=== PATIENT | male | born 1945 ===

== ENCOUNTER 2017-02-04 22:06 | Emergency (ER) | payer OTHER ==
[2017-02-04 22:10] VITALS: O2SAT 98
--- NOTE | 2017-02-04 23:09 | ED PDOC ---
HPI: Back Time Seen by Provider: 02/04/17 22:24 Chief Complaint (Nursing): Lower Extremity Problem/Injury Chief Complaint (Provider): Radiating back pain History Per: Patient History/Exam Limitations: no limitations Onset/Duration Of Symptoms: Days (3) Current Symptoms Are (Timing): Constant Additional Complaint(s): Patient is a 71 y/o male with a past medical history of hypertension, peripheral vascular disease, and coronary artery disease presenting to the emergency department for constant lower back pain that radiates to his right leg x 3 days that is worse with movement. Denies injuries, fever, urinary problems, abdominal pain, numbness, tingling, weakness, chest pain, headache, or other complaints. PCP: none provided. Past Medical History Reviewed: Historical Data, Nursing Documentation, Vital Signs Vital Signs: Last Vital Signs Temp 99.4 F 02/04/17 22:07 Pulse 92 H 02/04/17 22:07 Resp 25 H 02/04/17 22:07 BP 215/106 H 02/04/17 22:07 Pulse Ox 98 02/04/17 22:07 - Medical History PMH: CAD, HTN Denies: Chronic Pain (back) Other PMH: peripheral vascular disease, no cancer - Surgical History Surgical History: No Surg Hx - Family History Family History: States: Unknown Family Hx - Social History Current smoker - smoking cessation education provided: No Ex-Smoker (has not smoked in the last 12 months): No Alcohol: None Drugs: Denies - Home Medications Home Medications: Ambulatory Orders Medication Instructions Recorded Methylprednisolone [Medrol Dose 4 mg PO ASDIR #21 mg 02/05/17 Pack (21 tabs)] oxyCODONE/Acetaminophen [Percocet 1 ea PO Q6 PRN #15 tab 02/05/17 5/325 mg Tab] - Allergies Allergies/Adverse Reactions: Allergies Allergy/AdvReac Type Severity Reaction Status Date / Time No Known Allergies Allergy Verified 02/04/17 22:07 Review of Systems ROS Statement: Except As Marked, All Systems Reviewed And Found Negative Constitutional: Negative for: Fever, Weakness, Other (trauma) Gastrointestinal: Negative for: Abdominal Pain Genitourinary Male: Negative for: Dysuria, Frequency, Hematuria Musculoskeletal: Positive for: Back Pain (right lower, radiating), Leg Pain ( right) Neurological: Negative for: Weakness, Numbness (or tingling) Physical Exam - Reviewed Nursing Documentation Reviewed: Yes Vital Signs Reviewed: Yes - Physical Exam Appears: Positive for: Uncomfortable Head Exam: Positive for: ATRAUMATIC, NORMAL INSPECTION, NORMOCEPHALIC Skin: Positive for: Normal Color, Warm, Dry Eye Exam: Positive for: Normal appearance Neck: Positive for: Normal Cardiovascular/Chest: Positive for: Regular Rate, Rhythm. Negative for: Murmur Respiratory: Positive for: Normal Breath Sounds. Negative for: Accessory Muscle Use, Respiratory Distress Gastrointestinal/Abdominal: Positive for: Normal Exam, Soft. Negative for: Tenderness Back: Positive for: Other (right lower back paraspinal tenderness) Extremity: Positive for: Normal ROM, Swelling (chronic bilateral lower leg) Neurologic/Psych: Positive for: Alert, Oriented (x3) - Laboratory Results Result Diagrams: 02/04/17 23:16 02/04/17 23:16 - ECG O2 Sat by Pulse Oximetry: 98 (RA) Pulse Ox Interpretation: Normal - Progress Re-evaluation Time: 00:05 Condition: Re-examined, Improved Medical Decision Making Medical Decision Making: Time: 22:54 Initial impression: Back pain Differential diagnoses include but not limited to sciatica and lumbar retinopathy. Asymptomatic hypertension Initial plan: CT scan lumbar spine Labs ED urine dipstick Flexeril 10 mg PO Morphine 4 mg IVP Reevaluation 23:[address] scan reviewed. Findings noted as follows: Vertebrae: 5 [id number] lumbar-type vertebral bodies. Normal vertebral body alignment. No listhesis. No evident spondylolysis. The vertebral body heights are preserved. Moderate to severe degenerative endplate changes and associated Schmorl's nodes at L2-3 and L3-4. No acute fracture. Discs/spinal canal/neural foramina: Diffuse intervertebral disc height loss throughout the lumbar spine most significant from L1-2 through L3-4. Mild spinal canal narrowing from L1-2 through L3-4. Probable associated ligamentum flavum hypertrophy at L3-4. Mild neural foraminal narrowing at L3- 4 and L4-5. Soft tissues: Normal. Vasculature: The aorta demonstrates moderate atherosclerotic calcification. Lungs: Subpleural reticular opacities within the dependent aspect of the lower lobes may represent subsegmental atelectasis or scarring. Other findings: Mild diffuse facet arthropathy. The imaged abdominopelvic structures are otherwise unremarkable. IMPRESSION: 1. No acute osseous abnormality of the lumbar spine. 2. Mild to moderate lumbar spondylosis, most significant at L2-3 and L3-4 as detailed above. 3. Mild spinal canal stenosis from L1-3 L3-4. 4. Mild neuroforaminal narrowing at L3-4 and L4-5 Scribe Attestation: Documented by Gilda Lay, acting as a scribe for Samuel Stephen MD. Provider Scribe Attestation: All medical record entries made by the Scribe were at my direction and personally dictated by me. I have reviewed the chart and agree that the record accurately reflects my personal performance of the history, physical exam, medical decision making, and the department course for this patient. I have also personally directed, reviewed, and agree with the discharge instructions and disposition. Disposition - Clinical Impression Clinical Impression: Back pain, Radicular pain, Hypertension - Patient ED Disposition Is Patient to be Admitted: No Doctor Will See Patient In The: Office Counseled Patient/Family Regarding: Studies Performed, Diagnosis, Need For Followup - Disposition Referrals: [facility] [Outside] Disposition: Routine/Home Disposition Time: 00:06 Condition: GOOD Additional Instructions: Take your medications as instructed. Follow up with your PCP in 2-3 days. Prescriptions: Methylprednisolone [Medrol Dose Pack (21 tabs)] 4 mg PO ASDIR #21 mg oxyCODONE/Acetaminophen [Percocet 5/325 mg Tab] 1 ea PO Q6 PRN #15 tab PRN Reason: Pain, Severe (8-10) Instructions: Lumbar Radiculopathy (ED) Print Language: SETSWANA
[2017-02-04 23:20] LABS: BASO % 0.4 % (0.0-2.0); EOS # 0.1 K/uL (0.0-0.7); HEMATOCRIT 39.9 % (35.0-51.0); LYMPH % 18.6 % (20.0-40.0); MEAN CORPUSCULAR HEMOGLOBIN 27.9 pg (27.0-31.0); MEAN CORPUSCULAR HGB CONC 32.4 g/dL (33.0-37.0); MEAN PLATELET VOLUME 8.6 fl (7.2-11.7); MONO # 1.8 K/uL (0.0-0.8); RED CELL DISTRIBUTION WIDTH 17.3 % (11.5-14.5); WHITE BLOOD COUNT 10.9 K/uL (4.8-10.8)
[2017-02-04 23:28] LABS: BLOOD UREA NITROGEN 18 mg/dl (9-20); CALCIUM 9.3 mg/dL (8.4-10.2); CARBON DIOXIDE 29 mmol/L (22-30); CHLORIDE 99 mmol/L (98-107); GFR AFRICAN-AMERICAN > 60; GLUCOSE,RANDOM 135 mg/dL (75-110); POTASSIUM 3.9 MMOL/L (3.6-5.0); SODIUM 138 mmol/l (132-148)
[2017-02-05 00:42] VITALS: BP 170/98; PULSE 89; RESP 18; TEMP 98.9
--- NOTE | 2017-02-05 09:33 | CT ---
PROCEDURE: CT lumbar spine dated 02/04/2017 HISTORY: Right back pain. Leg pain. COMPARISON: CT TECHNIQUE: Axial computed tomography images were obtained of the lumbar spine without the use of intravenous contrast. Coronal and sagittal reformatted images were created and reviewed. Radiation dose: Total exam DLP = 1221.02 mGy-cm. This CT exam was performed using one or more of the following dose reduction techniques: Automated exposure control, adjustment of the mA and/or kV according to patient size, and/or use of iterative reconstruction technique. FINDINGS: VERTEBRAE: No acute compression fractures nor retropulsed fragments. . There are however chronic appearing degenerative endplate changes with subchondral cyst/ Schmorl's nodes formation. Similar but less severe changes seen at the L2-L3 endplates as well. Minor changes seen at the L1-L2 endplate. Slight straightening of the normal lumbar lordosis however vertebral bodies otherwise exhibit normal alignment. Facets normally aligned. DISCS/SPINAL CANAL/NEURAL FORAMINA: L1-2: Moderate disc space narrowing with small amount of vacuum disc phenomena and tiny chronic Schmorl's node formation. Small broad-based disc bulge ridge complex extends slightly into the proximal inferior margins of both exit foramina. Changes result in slight flattening of the ventral surface of thecal sac however the overall central canal appears quite. Facets slightly overgrown. Exit foramina are adequate. L2-3: There is moderate disc space narrowing with the small amount of vacuum disc phenomena and as mentioned above, degenerative endplate changes, subchondral cystic/ Schmorl's node formation. . Moderate broad-based bulge of the posterior annulus is also seen extending into the proximal inferior margins of both exit foramina. There is mild flattening of the ventral surface of the thecal sac on more so along the anterolateral borders than centrally however the overall central canal appears adequate. Facets a prominent. Proximal exit foramina appear adequate. . L3-4: At the L3-L4 level, there is also disc space narrowing with moderate broad-based bulge of the posterior annulus that also flattens the ventral surface of thecal sac and extends slightly into the proximal inferior margins of both exit foramina. Central canal appears adequate. Proximal exit foramina appear narrowed L4-5: At the L4-L5 level, there is mild posterior disc space narrowing. Small broad-based bulge of the posterior annulus proximal exit foramina appear narrowed is present. Central canal appears adequate. Proximal exit foramina appear narrowed. L5-S1: At the L5-S1 level, there is mild posterior disc space narrowing with minor broad-based bulge of the annulus. Central canal quite capacious. Facets are slightly overgrown. Exit foramina are adequate. . PARASPINAL SOFT TISSUES: Unremarkable. OTHER FINDINGS: Slightly nodular appearing left adrenal gland. IMPRESSION: No acute fractures. Multilevel degenerative spondylosis without significant central canal stenosis.
== END 2017-02-05 00:09 | disposition home or self-care (01) ==
LOC: H.ER 22:06
DX: M54.9 Dorsalgia, unspecified (principal); I10 Essential (primary) hypertension; M48.06 Spinal stenosis, lumbar region; I25.10 Atherosclerotic heart disease of native coronary artery without angina pectoris; I73.9 Peripheral vascular disease, unspecified; M51.36 Other intervertebral disc degeneration, lumbar region
CPT/HCPCS: 72131; 80048; 85025; 85651; 96374; 99283; J2270

== ENCOUNTER 2017-02-11 18:48 | Emergency (ER) | payer SELFPAY ==
[2017-02-11 18:54] VITALS: TEMP 96.8
[2017-02-11 19:18] VITALS: RESP 17; O2SAT 96
--- NOTE | 2017-02-11 19:46 | ED PDOC ---
HPI: Hypertension/Hypotension Time Seen by Provider: 02/11/17 19:12 Chief Complaint (Nursing): High Blood Pressure Chief Complaint (Provider): High Blood Pressure History Per: Patient History/Exam Limitations: no limitations Onset/Duration Of Symptoms: Days Current Symptoms Are (Timing): Still Present Additional Complaint(s): Pedro Gant is a 71 year old male with a history of hypertension that presents to the ED with a chief complaint of elevated blood pressure. Patient states that he was at the clinic earlier today for a routine check-up when they noticed his systolic blood pressure was between 220-240. Patient states that he was given one dose of Norvasc at the clinic and referred to the ED for further workup. He reports that his elevated blood pressure had been happening for a while, as he states he was seen here last week for his back pain and was noted to have high blood pressure then as well. Past Medical History Reviewed: Historical Data, Nursing Documentation, Vital Signs Vital Signs: Last Vital Signs Temp 96.8 F L 02/11/17 18:52 Pulse 78 02/11/17 19:16 Resp 17 02/11/17 19:16 BP 156/117 H 02/11/17 19:16 Pulse Ox 96 02/11/17 19:16 - Medical History PMH: CAD, CHF, HTN, Peripheral Edema Denies: Chronic Pain (back) - Surgical History Surgical History: Appendectomy - Family History Family History: States: Unknown Family Hx - Home Medications Home Medications: Ambulatory Orders Medication Instructions Recorded Methylprednisolone [Medrol Dose 4 mg PO ASDIR #21 mg 02/05/17 Pack (21 tabs)] oxyCODONE/Acetaminophen [Percocet 1 ea PO Q6 PRN #15 tab 02/05/17 5/325 mg Tab] - Allergies Allergies/Adverse Reactions: Allergies Allergy/AdvReac Type Severity Reaction Status Date / Time No Known Allergies Allergy Verified 02/04/17 22:07 Review of Systems Constitutional: Positive for: Other (high blood presure) Neurological: Positive for: Headache (mild) Physical Exam - Reviewed Nursing Documentation Reviewed: Yes Vital Signs Reviewed: Yes - Physical Exam Appears: Positive for: Non-toxic, No Acute Distress Head Exam: Positive for: ATRAUMATIC, NORMOCEPHALIC Skin: Positive for: Normal Color, Warm Eye Exam: Positive for: Normal appearance, EOMI, PERRL Cardiovascular/Chest: Positive for: Regular Rate, Rhythm. Negative for: Murmur Respiratory: Positive for: Normal Breath Sounds. Negative for: Wheezing Gastrointestinal/Abdominal: Positive for: Normal Exam, Soft Neurologic/Psych: Positive for: Alert, Oriented. Negative for: Motor/Sensory Deficits - Laboratory Results Result Diagrams: 02/11/17 19:37 02/11/17 19:53 - ECG O2 Sat by Pulse Oximetry: 96 (RA) Pulse Ox Interpretation: Normal - Progress Re-evaluation Time: 21:00 Condition: Re-examined, Improved Medical Decision Making Medical Decision Making: Impression: Hypertension ddx include Hypertensive urgency vs. Headache associated with hypertensive urgency Plan: * CT Head w/o contrast * CMP * CBC * Reevaluation Patient's systolic BP in ED is 150. 20:00 CT Head w/o contrast FINDINGS: Brain: There is mild diffuse heterogeneity of the white matter attenuation, consistent with chronic white matter ischemic changes. The cortical/white matter interfaces are preserved throughout the brain. There is no intracranial mass or mass effect. No hemorrhage. Midline shift: No midline shift. Ventricles: The ventricular system demonstrates mild diffuse compensatory enlargement. Bones/joints: The calvarium and skull base are intact. No acute fracture. Soft tissues: Normal. Vasculature: Atherosclerotic vascular calcification of the V4 segment vertebral and parasellar carotid arteries. Sinuses: Normal appearance of the imaged paranasal sinuses. Mastoid air cells: Normal as visualized. No mastoid effusion. IMPRESSION: 1. No acute intracranial abnormality. 2. Mild cortical volume loss. 3. Sequela of chronic microvascular disease. Scribe Attestation: Documented by Shanelle Coleman, acting as a scribe for Samuel Stephen MD. Provider Scribe Attestation: All medical record entries made by the Scribe were at my direction and personally dictated by me. I have reviewed the chart and agree that the record accurately reflects my personal performance of the history, physical exam, medical decision making, and the department course for this patient. I have also personally directed, reviewed, and agree with the discharge instructions and disposition. Disposition - Clinical Impression Clinical Impression: Hypertension - Patient ED Disposition Is Patient to be Admitted: No Doctor Will See Patient In The: Office Counseled Patient/Family Regarding: Studies Performed, Diagnosis, Need For Followup - Disposition Referrals: [facility] [Outside] Disposition: Routine/Home Disposition Time: 21:05 Condition: GOOD Additional Instructions: Start taking your new medications. Return for worsening. Follow up with your PCP in 2-3 days. Instructions: Hypertension (ED)
[2017-02-11 19:58] LABS: BASO # 0.1 K/uL (0.0-0.2); BASO % 0.4 % (0.0-2.0); EOS # 0.1 K/uL (0.0-0.7); EOS % 1.1 % (0.0-4.0); HEMATOCRIT 43.9 % (35.0-51.0); LYMPH # 2.9 K/uL (1.0-4.3); LYMPH % 21.5 % (20.0-40.0); MEAN CELL VOLUME 86.9 fl (80.0-94.0); MEAN CORPUSCULAR HEMOGLOBIN 27.9 pg (27.0-31.0); MEAN CORPUSCULAR HGB CONC 32.1 g/dL (33.0-37.0); MEAN PLATELET VOLUME 8.8 fl (7.2-11.7); MONO # 1.4 K/uL (0.0-0.8); MONO % 10.8 % (0.0-10.0); NEUT # 8.8 K/uL (1.8-7.0); NEUT % 66.2 % (50.0-75.0); NRBC % 0.1 % (0.0-0.0); RED CELL DISTRIBUTION WIDTH 16.7 % (11.5-14.5); WHITE BLOOD COUNT 13.3 K/uL (4.8-10.8)
[2017-02-11 20:13] LABS: BLOOD UREA NITROGEN 23 mg/dl (9-20); CALCIUM 9.4 mg/dL (8.4-10.2); CARBON DIOXIDE 29 mmol/L (22-30); CHLORIDE 97 mmol/L (98-107); GFR AFRICAN-AMERICAN > 60; GLUCOSE,RANDOM 110 mg/dL (75-110); POTASSIUM 3.8 MMOL/L (3.6-5.0); SODIUM 141 mmol/l (132-148)
[2017-02-11 21:06] VITALS: BP 191/97
[2017-02-11 21:20] VITALS: PULSE 75
--- NOTE | 2017-02-12 08:40 | CT ---
PROCEDURE: CT HEAD WITHOUT CONTRAST. HISTORY: headache COMPARISON: None available. TECHNIQUE: Axial computed tomography images were obtained through the head/brain without intravenous contrast. Radiation dose: Total exam DLP = 816.09 mGy-cm. This CT exam was performed using one or more of the following dose reduction techniques: Automated exposure control, adjustment of the mA and/or kV according to patient size, and/or use of iterative reconstruction technique. FINDINGS: HEMORRHAGE: No intracranial hemorrhage. BRAIN: No mass effect or edema. Mild volume loss is noted. Questionable mild white matter chronic microvascular ischemic disease. VENTRICLES: Unremarkable. No hydrocephalus. CALVARIUM: Unremarkable. PARANASAL SINUSES: Mild mucosal thickening and small air-fluid level seen at the left sphenoid sinus. MASTOID AIR CELLS: Unremarkable as visualized. No inflammatory changes. OTHER FINDINGS: None. IMPRESSION: No evidence of acute intracranial hemorrhage intracranial collection mass effect or midline shift. Mild volume loss. Mild mucosal thickening and small air-fluid level at the left maxillary sinus. Preliminary report was submitted by [facility].
== END 2017-02-11 21:22 | disposition home or self-care (01) ==
LOC: H.ER 18:48
DX: I10 Essential (primary) hypertension (principal)

== ENCOUNTER 2018-03-14 11:06 | Emergency (ER) | payer OTHER ==
[2018-03-14 11:20] VITALS: TEMP 97.1; O2SAT 97
[2018-03-14 11:21] VITALS: BMI 28.1
--- NOTE | 2018-03-14 12:27 | ED PDOC ---
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 Patient reports he woke up with the pain and denies fall, injury to the foot or history of gout. He states he took Ibuprofen 800mg this morning at 05:00. Denies calf pain, knee pain, or fever. Patient indicates he saw his doctor for knee and back pain in the past and was told he has arthritis at the time. Patient notes that he was also told to avoid seafood in his diet but is unsure why. PMD: Jaime Joy Past Medical History Reviewed: Historical Data, Nursing Documentation, Vital Signs Vital Signs: Last Vital Signs Temp 97.1 F L 03/14/18 11:19 Pulse 87 03/14/18 11:19 Resp 20 03/14/18 11:19 BP 181/76 H 03/14/18 11:19 Pulse Ox 97 03/14/18 11:19 - Medical History PMH: CAD, CHF, HTN, Peripheral Edema, Chronic Pain (back) - Surgical History Surgical History: Appendectomy - Family History Family History: States: Unknown Family Hx - Home Medications Home Medications: Ambulatory Orders Medication Instructions Recorded Methylprednisolone [Medrol Dose 4 mg PO ASDIR #21 mg 02/05/17 Pack (21 tabs)] oxyCODONE/Acetaminophen [Percocet 1 ea PO Q6 PRN #15 tab 02/05/17 5/325 mg Tab] RX: Colchicine 0.6 mg PO DAILY #7 tablet 03/14/18 RX: Indomethacin 50 mg PO TID PRN #21 capsule 03/14/18 RX: Prednisone [Deltasone] 40 mg PO DAILY #10 tablet 03/14/18 - Allergies Allergies/Adverse Reactions: Allergies Allergy/AdvReac Type Severity Reaction Status Date / Time No Known Allergies Allergy Verified 03/14/18 11:22 Review of Systems ROS Statement: Except As Marked, All Systems Reviewed And Found Negative Constitutional: Negative for: Fever Musculoskeletal: Positive for: Foot Pain (right). Negative for: Other (calf pain or knee pain) Physical Exam - Reviewed Nursing Documentation Reviewed: Yes Vital Signs Reviewed: Yes - Physical Exam Comments: GENERAL APPEARANCE: Patient is awake, alert, oriented x 3, in no acute distress. Resting comfortably. SKIN: Warm, dry; (-) cyanosis. NECK: Supple, FROM CHEST AND RESPIRATORY: (-) wheezing; (-) rales, (-) rhonchi; breath sounds equal bilaterally. Respirations even and nonlabored. HEART AND CARDIOVASCULAR: (-) irregularity LOWER EXTREMITY: Diffuse tenderness, erythema, and warmth to the dorsum right midfoot and forefoot. (-) edema (-) skin break. (-) palpable deformity. Decreased ROM at ankle secondary to foot pain. Capillary refill intact. (-) right ankle or calf tenderness. Remainder of lower extremity nontender with FROM. Ambulating with a limp. CARDIOVASCULAR: (+) distal pulse. NEUROLOGIC: (+) distal sensation. - Laboratory Results Result Diagrams: 03/14/18 13:32 03/14/18 13:32 - ECG O2 Sat by Pulse Oximetry: 97 (RA) Pulse Ox Interpretation: Normal Medical Decision Making Medical Decision Making: Initial Impression: Acute foot pain, likely gout Initial Plan: --BMP --Uric acid --CBC --Tylenol 650mg PO --Ultram 50mg PO --Right foot X-ray --Consult podiatry Despite elevated blood pressure reading upon arriving to the ED, patient states he took his medication today. Denies any complaints regarding elevated blood pressure reading. 1300 Case discussed with podiatry resident, Jason Crenshaw, who is agreeable to evaluation in ED. 1400 Foot XR reviewed: (-) fracture Labs reviewed. H&H stable. No leukocytosis. No elevation of uric acid. Toradol 30mg IVP ordered for additional pain control. Pending podiatry evaluation. 1430 Podiatry at bedside. [id number] Per podiatry evaluation, patient with diagnosis of gout. Solu-medrol IVP and Colchicine PO ordered. 1550 Repeat BP: 151/83 On re-evaluation, patient reports improvement of symptoms. On exam, patient remains AAOx3, in no acute distress. Lungs clear to auscultation, cardiac RRR, repeat neuro exam shows no focal findings. Patient offered crutches however declined. Vitals stable. Lab/Diagnostic results d/w the patient in great detail. Diagnosis of acute foot pain, gout d/w the patient. Based on history, exam and diagnostic results, plan will be for outpatient foll ow up with PMD/clinic/podiatry. Patient instructed to follow-up with pmd / referral provided / the clinic in 1- 2 days without fail. Advised to take medication as prescribed. Return to the emergency room at any time for any new or worsening symptoms. Patient states he fully agrees with and understands discharge instructions. States that he agrees with the plan and disposition. Verbalized and repeated discharge instructions and plan. I have given the patient opportunity to ask any additional questions. Scribe Attestation: Documented by Deon Bishop acting as a scribe for Ada FERRIS Provider Scribe Attestation: All medical record entries made by the Scribe were at my direction and personally dictated by me. I have reviewed the chart and agree that the record accurately reflects my personal performance of the history, physical exam, medical decision making, and the department course for this patient. I have also personally directed, reviewed, and agree with the discharge instructions and disposition. Disposition - Clinical Impression Clinical Impression: Acute foot pain, Gout - Patient ED Disposition Is Patient to be Admitted: No Counseled Patient/Family Regarding: Studies Performed, Diagnosis, Need For Followup, Rx Given - Disposition Referrals: Podiatry Clinic [Outside] Jaime Weaver MD [Staff Provider] - Disposition: Routine/Home Disposition Time: 15:50 Condition: STABLE Additional Instructions: La atencin mdica de emergencia que recibi hoy se dirigi a terry sntomas agudos. Si le recetaron algn medicamento, llnelo y tmelo segn las indicaciones. Los sntomas pueden tardar varios maxwell en resolverse. Regrese al Departamento de Emergencias si terry sntomas empeoran, no mejoran o si tiene otros problemas. Comunquese con blackwell mdico dentro de 2 maxwell para birgit nueva evaluacin y adrian un seguimiento o llame a xander de los mdicos / clnicas a los que jones sido referido y que figuran en el formulario de Informacin de visita al paciente que se incluye en blackwell paquete de luiza. Lleve con usted a blackwell consulta de seguimiento toda la documentacin que recibi del luiza junto con los medicamentos que est tomando. Nuestro tratamiento no puede reemplazar la atencin mdica continua por parte de un proveedor de atencin primaria (PCP) fuera del departamento de emergencias. Prescriptions: RX: Colchicine 0.6 mg PO DAILY #7 tablet RX: Indomethacin 50 mg PO TID PRN #21 capsule PRN Reason: Pain, Moderate (4-7) RX: Prednisone [Deltasone] 40 mg PO DAILY #10 tablet Instructions: Gout, Lifestyle Changes to Manage Gout, Muscle and Bone Pain (DC), Uric Acid Blood Test Forms: [employer] (Ivorian) Print Language: MAORI - POA Present On Arrival: None Results - Lab Results Lab Results: 03/14/18 03/14/18 13:32 13:32 WBC 9.1 RBC 4.61 Hgb 14.1 Hct 41.6 MCV 90.2 D MCH 30.6 MCHC 34.0 RDW 13.6 Plt Count 271 MPV 8.4 Neut % (Auto) 65.9 Lymph % (Auto) 19.2 L Mcculloch % (Auto) 13.7 H Eos % (Auto) 0.7 Baso % (Auto) 0.5 Neut # (Auto) 6.0 Lymph # (Auto) 1.7 Mcculloch # (Auto) 1.2 H Eos # (Auto) 0.1 Baso # (Auto) 0.0 Sodium 140 Potassium 3.7 Chloride 101 Carbon Dioxide 27 Anion Gap 16 BUN 19 Creatinine 1.2 Est GFR ( Amer) > 60 Est GFR (Non-Af Amer) 60 Random Glucose 106 Uric Acid 6.1 Calcium 9.9
[2018-03-14 13:44] LABS: BASO % 0.5 % (0.0-2.0); EOS # 0.1 K/uL (0.0-0.7); EOS % 0.7 % (0.0-4.0); HEMOGLOBIN 14.1 g/dL (12.0-18.0); LYMPH # 1.7 K/uL (1.0-4.3); LYMPH % 19.2 % (20.0-40.0); MEAN CELL VOLUME 90.2 fl (80.0-94.0); MEAN CORPUSCULAR HEMOGLOBIN 30.6 pg (27.0-31.0); MEAN PLATELET VOLUME 8.4 fl (7.2-11.7); MONO # 1.2 K/uL (0.0-0.8); MONO % 13.7 % (0.0-10.0); NEUT % 65.9 % (50.0-75.0); NRBC % 0.1 % (0.0-0.0); RBC 4.61 Mil/uL (4.40-5.90); RED CELL DISTRIBUTION WIDTH 13.6 % (11.5-14.5); WHITE BLOOD COUNT 9.1 K/uL (4.8-10.8)
[2018-03-14 13:54] LABS: BLOOD UREA NITROGEN 19 mg/dl (9-20); CALCIUM 9.9 mg/dL (8.4-10.2); GFR NON-AFRICAN AMERICAN 60; URIC ACID 6.1 mg/Dl (3.5-8.5)
[2018-03-14] MEDS ORDERED: COLCHICINE 0.6 MG CAPSULE PO ONE (14:45)
--- NOTE | 2018-03-14 15:43 | RAD ---
Date of service: 03/14/2018 PROCEDURE: Right Foot Radiographs. HISTORY: pain to midfoot and forefoot COMPARISON: None. FINDINGS: BONES: Normal. No fracture. JOINTS: Normal. SOFT TISSUES: Normal. OTHER FINDINGS: Pes cavum deformity. IMPRESSION: No significant or acute findings to account for/ related to the clinical presentation.
[2018-03-14 15:59] VITALS: BP 151/83; PULSE 74; RESP 16
== END 2018-03-14 16:00 | disposition home or self-care (01) ==
LOC: H.ER 11:06
DX: M10.9 Gout, unspecified (principal); M79.671 Pain in right foot; G89.29 Other chronic pain; I11.0 Hypertensive heart disease with heart failure
CPT/HCPCS: 73630; 80048; 84550; 85025; 96374; 96375; 99284; J1885; J2930